=== PATIENT | female | born 1985 | race Caucasian/White ===

== ENCOUNTER 2016-11-17 07:34 | Day surgery (SDC) | payer OTHER ==
[2016-11-17] MEDS ORDERED: LR 1,000 ML IV ONE (09:00)
[2016-11-17] MEDS ORDERED: MIDAZOLAM 2 MG/2 ML VIAL ONE ×2 (09:27→09:29)
[2016-11-17] MEDS ORDERED: PROPOFOL 200 MG/20 ML VIAL ONE ×2 (09:27→09:51)
[2016-11-17] MEDS ORDERED: LIDO/EPI 1% **Not for Epidural 20 ML MDV ONE (09:29)
[2016-11-17] MEDS ORDERED: DEXAMETHASONE 4 MG/ML VIAL ONE (09:55)
[2016-11-17] MEDS ORDERED: KETOROLAC 30 MG/1 ML SDV ONE (10:10)
--- NOTE | 2016-11-17 11:04 | GOP ---
[f rep st] OPERATIVE REPORT DATE OF OPERATION: 11/17/2016 SURGEON: Jenny Garcia MD ANESTHESIA: General with LMA. ANESTHESIOLOGIST: Charlie Carreon MD. PREOPERATIVE DIAGNOSIS: Retained intrauterine device, inability to remove in the office, desires fe rtility. POSTOPERATIVE DIAGNOSIS: Retained intrauterine device, inability to remove in the office, desires f ertility. PROCEDURE PERFORMED: Retrieval of likely a partially embedded intrauterine device. FINDINGS: Normal-appearing cervix. I did not do a hysteroscopy of the uterus, and ultimately juan antonio l-appearing Paragard IUD, with no missing parts. INDICATIONS: The patient is a 30-year-old, referred by Abigail Collins from [place] for IUD that w as attempted to be removed, but strings pulled off. There were 2 office attempts at our office. Wi th patient unable to tolerate procedure, IUD retrieval under anesthesia. DESCRIPTION OF PROCEDURE: With informed consent signed, patient taken to the operative room, placed under general anesthesia. Placed in a low dorsal lithotomy position. Prepped and draped in the [facility] sterile fashion. Tenaculum placed on the anterior lip of the cervix. Cervix dilated up to 6 mm . Attempt to remove the IUD with the IUD hook was unsuccessful, so further dilation done up to 7 mm , and then this was placed again. The T-part of the IUD partially came out of the cervix at this po int, and this was grasped with a forceps and removed intact. Tenaculum removed. Patient placed in supine position, awakened in the operating room, and taken to the recovery room in stable condition. Tolerated procedure well. COMPLICATIONS: None. /[id number]/MODL
== END 2016-11-17 11:20 | disposition home or self-care (01) ==
LOC: FSGY 07:34
PROVIDERS: ATTEND Obstetrics & Gynecology Gynecology
PROC: 0UPD7HZ Removal of Contraceptive Device from Uterus and Cervix, Via Natural or Artificial Opening (ICD-10-PCS; principal; 2016-11-17 09:15)
DX: Z30.432 Encounter for removal of intrauterine contraceptive device (principal)
CPT/HCPCS: J1100; J1885; J2250; J2704

== ENCOUNTER → 2017-02-09 | Outpatient (CLI) | payer OTHER | LOC: FIMAGING 13:04 | PROVIDERS: ATTEND Obstetrics & Gynecology | DX: O99.511 Diseases of the respiratory system complicating pregnancy, first trimester (principal); O99.111 Other diseases of the blood and blood-forming organs and certain disorders involving the immune mechanism complicating pregnancy, first trimester; J45.40 Moderate persistent asthma, uncomplicated; D69.6 Thrombocytopenia, unspecified; Z3A.12 12 weeks gestation of pregnancy ==

== ENCOUNTER → 2017-03-30 | Outpatient (CLI) | payer OTHER | LOC: FIMAGING 13:34 | PROVIDERS: ATTEND Obstetrics & Gynecology | DX: O09.512 Supervision of elderly primigravida, second trimester (principal); Z3A.19 19 weeks gestation of pregnancy; J45.909 Unspecified asthma, uncomplicated ==

== ENCOUNTER → 2017-07-27 | Outpatient (CLI) | payer OTHER | LOC: FIMAGING 14:32 | PROVIDERS: ATTEND Obstetrics & Gynecology | DX: Z34.03 Encounter for supervision of normal first pregnancy, third trimester (principal); Z3A.36 36 weeks gestation of pregnancy ==

== ENCOUNTER → 2017-09-25 | Outpatient (CLI) | payer OTHER | LOC: FIMAGING 13:39 | PROVIDERS: ATTEND Obstetrics & Gynecology | DX: R10.2 Pelvic and perineal pain (principal); N93.9 Abnormal uterine and vaginal bleeding, unspecified ==